=== PATIENT | female | born 1985 | race Caucasian/White ===

== ENCOUNTER 2023-05-29 10:54 | Inpatient (IN) ==
[2023-05-29] MEDS ORDERED: Nalbuphine 10 MG/ML 1 ML VIAL IV PRN ×2 (11:22→11:41)
[2023-05-29] MEDS ORDERED: Buffered Lidocaine 1% SYRIN 1 ml INTRADERM ONE ×2 (11:22→11:41)
[2023-05-29] MEDS ORDERED: Promethazine INJ(RESTRICTED) 25 MG/ML 1 ml VIAL IV PRN ×2 (11:22→11:41)
[2023-05-29] MEDS ORDERED: Lactated Ringers 1000 ml BAG 1,000 ML IV ONE (11:41)
[2023-05-29] MEDS ORDERED: Labetalol IV 5 MG/ML 20 ml VIAL IV PUSH ONE (11:47)
[2023-05-29] MEDS ORDERED: Betamethasone 6 mg/ml 5 ml VIAL IM SCH (12:00)
[2023-05-29] MEDS ORDERED: Lactated Ringers 1000 ml BAG 1,000 ML IV SCH (12:00)
[2023-05-29 12:38] LABS: ABS Basophils 0.1 10^3/uL (0.0-0.1); ABS Lymphocytes 3.6 10^3/uL (1.0-4.8); ABS Monocytes 0.8 10^3/uL (0.0-0.9); ABS Neutrophils 6.7 10^3/uL (1.5-7.6); Eosinophil % 0.3 %; Hematocrit 41.3 % (35-45); Lymphocyte % 32.6 %; Mean Corpuscular Hemoglobin 29.5 pg (27-33); Mean Corpuscular Hgb Conc 33.8 g/dL (31-36); Mean Corpuscular Volume 87.3 fL (80-97); Mean Platelet Volume 8.7 fL (7.5-11.2); Platelet Count 287 10^3/uL (150-450); Red Blood Count 4.73 10^6/uL (3.63-4.92); Red Cell Distribution Width 13.4 % (12-17); White Blood Count 11.1 10^3/uL (3.8-11.8)
[2023-05-29] MEDS ORDERED: Labetalol IV 5 MG/ML 20 ml VIAL ONE (12:44)
[2023-05-29] MEDS ORDERED: Magnesium Sulf 4 GM/100 ML IV 4,000 MG/100 ML BAG IVPB ONE (12:44)
[2023-05-29 12:47] LABS: Urine Creatinine Concentration 169.83 mg/dL (20.00-320.00)
[2023-05-29 12:54] LABS: Albumin 3.2 g/dL (3.2-5.2); Potassium 3.9 mmol/L (3.5-5.0); Total Bilirubin 0.3 mg/dL (0.2-1.0)
[2023-05-29] MEDS: Magnesium Sulfate OB PREMIX 40 GM/1,000 ML BAG ONE (13:00)
[2023-05-29 13:01] LABS: Creatinine, Serum 0.85 mg/dL (0.51-0.95); Globulin 3.3 g/dL (2-4); Total Protein 6.5 g/dL (6.4-8.9)
[2023-05-29 13:07] LABS: Urine Appearance Cloudy; Urine Benzodiazepine Screen None Detected (None Detect); Urine Bilirubin Negative (Negative); Urine Blood Negative (Negative); Urine Cannabinoids Screen None Detected (None Detect); Urine Color Yellow; Urine Glucose Negative (Negative); Urine Ketones Negative (Negative); Urine Nitrite Negative (Negative); Urine Opiates Screen None Detected (None Detect); Urine Protein 2+(100 mg/dL) (Negative); Urine Specific Gravity 1.016 (1.002-1.030); Urine TP Creat Ratio 0.55 mg/mg; Urine Urobilinogen Negative (Negative)
[2023-05-29] MEDS ORDERED: Magnesium Sulfate 2 gm BAG 2 GM/50 ML BAG IVPB ONE (13:33)
[2023-05-29 13:39] LABS: Urine Bacteria Absent (Absent); Urine Red Blood Cell Trace(0-2/hpf) (Absent); Urine Squamous Epithelial Cell Present (Absent); Urine White Blood Cell Trace(0-5/hpf) (Absent)
[2023-05-29] MEDS ORDERED: Calcium Gluconate 1 GM/10 ML VIAL (in Pyxis) IV PUSH PRN (14:57)
[2023-05-29] MEDS ORDERED: Magnesium Sulfate OB PREMIX 40 GM/1,000 ML BAG IVPB SCH (15:00)
[2023-05-29] MEDS: Labetalol IV 5 MG/ML 20 ml VIAL IV PUSH ONE ×2 (15:20→15:44)
== END 2023-05-29 16:25 | disposition short-term general hospital (02) | DRG 566 ==
LOC: MCHOBOUT 10:54 → MCHOB 11:43
PROVIDERS: ADMIT Obstetrics & Gynecology; ATTEND Obstetrics & Gynecology